=== PATIENT | female | born 1955 | race African-American/Black ===

== ENCOUNTER 2022-06-22 15:59 | Inpatient (IN) ==
[2022-06-22 17:38] LABS: PCO2 Arterial 69 mmHg (35-45); PO2 Arterial 119 mmHg (80-100)
[2022-06-22 18:51] LABS: INR 4.5 (0.89-1.11)
[2022-06-22 19:08] LABS: High Sens Troponin Baseline 24 pg/mL (<15)
[2022-06-22 19:27] LABS: ALT 14 U/L (7-52); AST 27 U/L (13-39); Albumin 3.5 g/dL (3.2-5.2); Albumin/Globulin Ratio 1.1 (1-3); Alkaline Phosphatase 78 U/L (35-149); Blood Urea Nitrogen 21 mg/dL (6-24); CO2 Carbon Dioxide 31 mmol/L (22-32); Calcium 8.6 mg/dL (8.6-10.3); Chloride 104 mmol/L (101-111); Globulin 3.3 g/dL (2-4); Glucose 95 mg/dL (70-100); Lipase < 10 U/L (11.0-82.0); Magnesium 2.2 mg/dL (1.9-2.7); Sodium 142 mmol/L (135-145); Total Protein 6.8 g/dL (6.4-8.9); eGFR CKD-EPI 46.5 (>60)
[2022-06-22 19:38] LABS: Anion Gap 7 mmol/L (2-11); Potassium 5.7 mmol/L (3.5-5.0)
[2022-06-22 19:40] LABS: Hematocrit 42 % (35-47); Hemoglobin 12.5 g/dL (12.0-16.0); Mean Corpuscular HGB Conc 30 g/dL (31-36); Mean Corpuscular Hemoglobin 25 pg (27-31); Mean Corpuscular Volume 84 fL (80-97); Mean Platelet Volume 9.5 fL (7.4-10.4); Platelet Count 101 10^3/uL (150-450); Red Cell Distribution Width 21 % (10-15); White Blood Count 6.5 10^3/uL (3.5-10.8)
[2022-06-22 19:43] LABS: ABS Basophils 0.1 10^3/ul (0-0.2); ABS Monocytes 1.7 10^3/ul (0-0.8); ABS Neutrophils 2.8 10^3/ul (1.5-7.7); Eosinophil % 0.1 %; Lymphocyte % 30.3 %; Nucleated Red Blood Cells % 0.2; Polychromasia 1+; Target Cells 1+
[2022-06-22 19:44] LABS: Hypochromasia 1+
[2022-06-22 19:46] LABS: Anisocytosis 2+
[2022-06-22] MEDS ORDERED: Furosemide 40 mg/4 ml IV VIAL IV ONE (19:58)
[2022-06-22 20:06] LABS: High Sensitivity Troponin 1 Hr 27 pg/mL (<15)
[2022-06-22] MEDS ORDERED: Ondansetron 4 mg VIAL 2 MG/ML 2 ml VIAL IV PRN (20:37)
[2022-06-22] MEDS ORDERED: [UNRECOGNIZED DRUG - REMARK] PO SCH (21:00)
[2022-06-22 21:20] LABS: T4, Total 8.68 mcg/dL (6.09-12.23)
[2022-06-22 21:24] LABS: TSH Ultra Thyroid Stim Horm 9.26 mcIU/mL (0.34-5.60)
[2022-06-22 21:41] LABS: Urine Appearance Clear; Urine Bilirubin Negative (Negative); Urine Blood Negative (Negative); Urine Color Yellow; Urine Glucose Negative (Negative); Urine Ketones Negative (Negative); Urine Nitrite Negative (Negative); Urine Protein Negative (Negative); Urine Urobilinogen 0.2 (Negative) (Negative)
[2022-06-22 23:42] LABS: PO2 Arterial 107 mmHg (80-100)
[2022-06-22 23:45] LABS: PCO2 Arterial 73 mmHg (35-45)
[2022-06-22] MEDS: PANCRELIPASE 12000 UNIT PO SCH (23:59)
[2022-06-23] MEDS: oxyCODONE SR 20 mg TAB PO SCH ×3 (00:31→08:18)
[2022-06-23 02:48] LABS: PO2 Arterial 118 mmHg (80-100)
[2022-06-23 02:56] LABS: PCO2 Arterial 78 mmHg (35-45)
[2022-06-23 06:51] LABS: INR 4.6 (0.89-1.11)
[2022-06-23 07:27] LABS: ABS Lymphocytes 1.9 10^3/ul (1.0-4.8); ABS Monocytes 1.3 10^3/ul (0-0.8); ABS Neutrophils 1.7 10^3/ul (1.5-7.7); Eosinophil % 0.1 %; Hematocrit 36 % (35-47); Hemoglobin 11.4 g/dL (12.0-16.0); Lymphocyte % 38.6 %; Mean Corpuscular HGB Conc 32 g/dL (31-36); Mean Corpuscular Hemoglobin 26 pg (27-31); Mean Corpuscular Volume 83 fL (80-97); Mean Platelet Volume 9.7 fL (7.4-10.4); Nucleated Red Blood Cells % 0.3; Platelet Count 92 10^3/uL (150-450); Red Blood Count 4.34 10^6 /uL (3.70-4.87); Red Cell Distribution Width 20 % (10-15); White Blood Count 4.9 10^3/uL (3.5-10.8)
[2022-06-23 07:45] LABS: CO2 Carbon Dioxide 36 mmol/L (22-32); Calcium 8.3 mg/dL (8.6-10.3); Chloride 107 mmol/L (101-111); Magnesium 2.1 mg/dL (1.9-2.7); Sodium 143 mmol/L (135-145)
[2022-06-23 07:51] LABS: ALT 11 U/L (7-52); AST 23 U/L (13-39); Albumin/Globulin Ratio 1.2 (1-3); Alkaline Phosphatase 63 U/L (35-149); Blood Urea Nitrogen 21 mg/dL (6-24); Globulin 2.6 g/dL (2-4); Glucose 94 mg/dL (70-100); Total Protein 5.6 g/dL (6.4-8.9); eGFR CKD-EPI 46.9 (>60)
[2022-06-23] MEDS ORDERED: Perflutren Lipid Microsphere 3 ML VIAL ONE (08:01)
[2022-06-23 08:08] LABS: Potassium 5.6 mmol/L (3.5-5.0)
[2022-06-23] MEDS: Multivitamins/Minerals TAB PO SCH (08:19)
[2022-06-23] MEDS: Furosemide 40 mg/4 ml IV VIAL IV SLOW PU SCH ×2 (08:21→17:20)
[2022-06-23] MEDS: PANCRELIPASE 12000 UNIT PO SCH ×3 (08:22→21:06)
[2022-06-23] MEDS ORDERED: Potassium Chlor 20 meq TAB.ER PO SCH (09:00)
[2022-06-23 09:49] LABS: PO2 Arterial 67 mmHg (80-100)
[2022-06-23 09:51] LABS: PCO2 Arterial 80 mmHg (35-45)
[2022-06-23 15:13] LABS: PO2 Arterial 210 mmHg (80-100)
[2022-06-23 15:15] LABS: PCO2 Arterial 81 mmHg (35-45)
[2022-06-24 04:29] LABS: ABS Basophils 0.1 10^3/ul (0-0.2); ABS Lymphocytes 1.8 10^3/ul (1.0-4.8); ABS Monocytes 1.2 10^3/ul (0-0.8); ABS Neutrophils 1.8 10^3/ul (1.5-7.7); Eosinophil % 0.4 %; Hematocrit 37 % (35-47); Hemoglobin 11.7 g/dL (12.0-16.0); Lymphocyte % 36.6 %; Mean Corpuscular HGB Conc 32 g/dL (31-36); Mean Corpuscular Hemoglobin 26 pg (27-31); Mean Corpuscular Volume 83 fL (80-97); Mean Platelet Volume 9.9 fL (7.4-10.4); Nucleated Red Blood Cells % 0.1; Platelet Count 110 10^3/uL (150-450); Red Blood Count 4.45 10^6 /uL (3.70-4.87); Red Cell Distribution Width 21 % (10-15); White Blood Count 4.9 10^3/uL (3.5-10.8)
[2022-06-24 04:56] LABS: Blood Urea Nitrogen 22 mg/dL (6-24); CO2 Carbon Dioxide 35 mmol/L (22-32); Calcium 8.2 mg/dL (8.6-10.3); Chloride 102 mmol/L (101-111); Glucose 83 mg/dL (70-100); Sodium 143 mmol/L (135-145); eGFR CKD-EPI 44.4 (>60)
[2022-06-24 05:00] LABS: Anion Gap 6 mmol/L (2-11)
[2022-06-24 06:52] LABS: Potassium, Whole Blood 4.8 mmol/L (3.4-4.5)
[2022-06-24 07:58] LABS: PCO2 Arterial 69 mmHg (35-45); PO2 Arterial 140 mmHg (80-100)
[2022-06-24] MEDS: Furosemide 40 mg/4 ml IV VIAL IV SLOW PU SCH (08:00)
[2022-06-24] MEDS: Multivitamins/Minerals TAB PO SCH (08:01)
[2022-06-24] MEDS: PANCRELIPASE 12000 UNIT PO SCH ×3 (10:05→20:28)
[2022-06-24 17:21] LABS: INR 3.31 (0.89-1.11)
[2022-06-24 17:23] LABS: Magnesium 1.8 mg/dL (1.9-2.7); Phosphorus 3.5 mg/dL (2.5-5.0)
[2022-06-24] MEDS ORDERED: Magnesium Sulfate 2 gm BAG 2 GM/50 ML BAG IVPB ONE (18:36)
[2022-06-25 06:37] LABS: ABS Lymphocytes 1.8 10^3/ul (1.0-4.8); ABS Monocytes 1.1 10^3/ul (0-0.8); ABS Neutrophils 1.7 10^3/ul (1.5-7.7); Eosinophil % 0.2 %; Hematocrit 36 % (35-47); Hemoglobin 11.4 g/dL (12.0-16.0); Lymphocyte % 38.8 %; Mean Corpuscular HGB Conc 32 g/dL (31-36); Mean Corpuscular Hemoglobin 26 pg (27-31); Mean Corpuscular Volume 83 fL (80-97); Mean Platelet Volume 8.8 fL (7.4-10.4); Nucleated Red Blood Cells % 0.1; Platelet Count 88 10^3/uL (150-450); Red Blood Count 4.33 10^6 /uL (3.70-4.87); Red Cell Distribution Width 20 % (10-15); White Blood Count 4.7 10^3/uL (3.5-10.8)
[2022-06-25 07:24] LABS: Magnesium 2.1 mg/dL (1.9-2.7); Phosphorus 3.3 mg/dL (2.5-5.0); Potassium 4.2 mmol/L (3.5-5.0); eGFR CKD-EPI 51.9 (>60)
[2022-06-25] MEDS: Multivitamins/Minerals TAB PO SCH (08:59)
[2022-06-25] MEDS: PANCRELIPASE 12000 UNIT PO SCH ×3 (09:00→21:01)
[2022-06-25 12:39] LABS: Albumin 3.1 g/dL (3.2-5.2)
[2022-06-26] MEDS: Multivitamins/Minerals TAB PO SCH (08:33)
[2022-06-26] MEDS: PANCRELIPASE 12000 UNIT PO SCH ×3 (08:33→23:12)
[2022-06-26 10:12] LABS: INR 2.21 (0.89-1.11)
[2022-06-26 10:32] LABS: ABS Lymphocytes 1.8 10^3/ul (1.0-4.8); ABS Monocytes 0.9 10^3/ul (0-0.8); Eosinophil % 0.2 %; Hematocrit 40 % (35-47); Lymphocyte % 38.3 %; Mean Corpuscular HGB Conc 30 g/dL (31-36); Mean Corpuscular Hemoglobin 25 pg (27-31); Mean Corpuscular Volume 82 fL (80-97); Mean Platelet Volume 9.5 fL (7.4-10.4); Platelet Count 96 10^3/uL (150-450); Red Blood Count 4.88 10^6 /uL (3.70-4.87); Red Cell Distribution Width 20 % (10-15); White Blood Count 4.8 10^3/uL (3.5-10.8)
[2022-06-26 11:10] LABS: Calcium 8.6 mg/dL (8.6-10.3); Magnesium 1.5 mg/dL (1.9-2.7); Phosphorus 2.3 mg/dL (2.5-5.0); eGFR CKD-EPI 61.4 (>60)
[2022-06-26] MEDS ORDERED: Magnesium Sulfate 2 gm BAG 2 GM/50 ML BAG IVPB ONE (11:18)
[2022-06-26] MEDS ORDERED: Potassium Acid Phos 500 mg TAB PO ONE (11:19)
[2022-06-26] MEDS ORDERED: Warfarin per PHARMACY **NOTE FOLLOW UP SCH (13:00)
[2022-06-26] MEDS: Nystatin TOP POWDER 15 GM BTL TOPICAL SCH ×2 (16:17→23:11)
[2022-06-27 06:28] LABS: ABS Lymphocytes 2.1 10^3/ul (1.0-4.8); ABS Monocytes 1.1 10^3/ul (0-0.8); ABS Neutrophils 1.5 10^3/ul (1.5-7.7); Eosinophil % 0.3 %; Hematocrit 38 % (35-47); Hemoglobin 11.5 g/dL (12.0-16.0); Lymphocyte % 44.8 %; Mean Corpuscular HGB Conc 31 g/dL (31-36); Mean Corpuscular Hemoglobin 25 pg (27-31); Mean Corpuscular Volume 82 fL (80-97); Mean Platelet Volume 9.9 fL (7.4-10.4); Nucleated Red Blood Cells % 0.1; Platelet Count 105 10^3/uL (150-450); Red Blood Count 4.59 10^6 /uL (3.70-4.87); Red Cell Distribution Width 20 % (10-15); White Blood Count 4.7 10^3/uL (3.5-10.8)
[2022-06-27 06:41] LABS: INR 2.13 (0.89-1.11)
[2022-06-27 06:44] LABS: Blood Urea Nitrogen 20 mg/dL (6-24); Calcium 8.3 mg/dL (8.6-10.3); Chloride 95 mmol/L (101-111); Glucose 84 mg/dL (70-100); Magnesium 1.8 mg/dL (1.9-2.7); Sodium 144 mmol/L (135-145); eGFR CKD-EPI 51.9 (>60)
[2022-06-27 07:01] LABS: CO2 Carbon Dioxide 47 mmol/L (22-32)
[2022-06-27] MEDS ORDERED: Magnesium Sulfate 2 gm BAG 2 GM/50 ML BAG IVPB ONE (07:07)
[2022-06-27 08:41] LABS: Phosphorus 2.6 mg/dL (2.5-5.0); Potassium Redraw 3.7 mmol/L (3.5-5.0)
[2022-06-27] MEDS: PANCRELIPASE 12000 UNIT PO SCH ×3 (11:22→23:31)
[2022-06-27] MEDS: Multivitamins/Minerals TAB PO SCH (11:24)
[2022-06-27] MEDS: Nystatin TOP POWDER 15 GM BTL TOPICAL SCH ×4 (11:27→23:30)
[2022-06-28 06:26] LABS: ABS Lymphocytes 2.3 10^3/ul (1.0-4.8); ABS Monocytes 0.9 10^3/ul (0-0.8); ABS Neutrophils 1.1 10^3/ul (1.5-7.7); Eosinophil % 0.3 %; Hematocrit 39 % (35-47); Hemoglobin 11.9 g/dL (12.0-16.0); Lymphocyte % 53.9 %; Mean Corpuscular HGB Conc 30 g/dL (31-36); Mean Corpuscular Hemoglobin 25 pg (27-31); Mean Corpuscular Volume 82 fL (80-97); Mean Platelet Volume 9.2 fL (7.4-10.4); Nucleated Red Blood Cells % 0.1; Platelet Count 103 10^3/uL (150-450); Red Blood Count 4.76 10^6 /uL (3.70-4.87); Red Cell Distribution Width 20 % (10-15); White Blood Count 4.2 10^3/uL (3.5-10.8)
[2022-06-28 06:34] LABS: INR 2.83 (0.89-1.11)
[2022-06-28 06:37] LABS: Blood Urea Nitrogen 20 mg/dL (6-24); Calcium 8.8 mg/dL (8.6-10.3); Chloride 95 mmol/L (101-111); Glucose 83 mg/dL (70-100); Magnesium 1.9 mg/dL (1.9-2.7); Potassium 3.9 mmol/L (3.5-5.0); eGFR CKD-EPI 52.4 (>60)
[2022-06-28 06:40] LABS: Sodium 146 mmol/L (135-145)
[2022-06-28 07:10] LABS: CO2 Carbon Dioxide 47 mmol/L (22-32)
[2022-06-28] MEDS: Multivitamins/Minerals TAB PO SCH (10:57)
[2022-06-28] MEDS: PANCRELIPASE 12000 UNIT PO SCH ×3 (10:58→22:57)
[2022-06-28] MEDS: Polyethylene Glycol 3350 17 GM PACKET PO PRN (10:58)
[2022-06-28] MEDS: Nystatin TOP POWDER 15 GM BTL TOPICAL SCH ×4 (10:59→19:40)
[2022-06-28] MEDS: Warfarin DAILY REMINDER **NOTE FOLLOW UP SCH (17:03)
[2022-06-29 05:21] LABS: INR 3.52 (0.89-1.11)
[2022-06-29] MEDS: Multivitamins/Minerals TAB PO SCH (09:26)
[2022-06-29] MEDS: PANCRELIPASE 12000 UNIT PO SCH ×3 (09:27→21:09)
[2022-06-29] MEDS: Nystatin TOP POWDER 15 GM BTL TOPICAL SCH ×2 (09:27→13:48)
[2022-06-29] MEDS: Polyethylene Glycol 3350 17 GM PACKET PO PRN (09:31)
[2022-06-29 13:24] LABS: Rapid COVID-19 Molecular Undetected (Undetected)
[2022-06-29] MEDS: Warfarin DAILY REMINDER **NOTE FOLLOW UP SCH (16:58)
[2022-06-29] MEDS ORDERED: Warfarin - No Order Today **NOTE FOLLOW UP ONE (17:00)
[2022-06-30] MEDS: Nystatin TOP POWDER 15 GM BTL TOPICAL SCH ×2 (00:32→09:05)
[2022-06-30 07:23] LABS: INR 2.99 (0.89-1.11)
[2022-06-30 07:44] VITALS: BP 114/68
[2022-06-30] MEDS: Multivitamins/Minerals TAB PO SCH (09:04)
[2022-06-30] MEDS: PANCRELIPASE 12000 UNIT PO SCH (09:05)
[2022-06-30] MEDS: Polyethylene Glycol 3350 17 GM PACKET PO PRN (09:09)
[2022-06-30] MEDS ORDERED: COVID-19 VACCINE, MRNA(MODERNA) BOOSTER/PF 50 MCG/0.25 ML IM ONE (11:00)
== END 2022-06-30 11:30 | DRG 189 ==
LOC: ED 15:59 → SUATTDRO 20:37 → EDHOLD 20:37 → ICU 23:03 → MEDTELE 06-26 22:14
PROVIDERS: ADMIT Internal Medicine; ATTEND Student in an Organized Health Care Education/Training Program